=== PATIENT | male | born 1945 | race Two or more races ===

== ENCOUNTER 2022-08-17 01:57 | Emergency (ER) | payer MEDICARE, MEDICAID ==
[~2022-08-17] VITALS: Ht 190.5 cm; Wt 55.5 kg
[2022-08-17 02:17] VITALS: BP 132/69
[2022-08-17] MEDS ORDERED: CARV3 PO (02:27)
[2022-08-17] MEDS ORDERED: OMEP20 PO (02:27)
[2022-08-17] MEDS ORDERED: AMLO-257 PO (02:27)
[2022-08-17] MEDS ORDERED: ATOR40TA28 PO (02:27)
[2022-08-17] MEDS ORDERED: HYDR25TA2 PO (02:27)
[2022-08-17] MEDS ORDERED: VALS160T2 PO (02:27)
[2022-08-17] MEDS ORDERED: ASPI-1444 PO (02:27)
[2022-08-17] MEDS ORDERED: BACITRACIN 0.9 GM PACKET OINTMENT TP ONE (07:00)
== END 2022-08-17 07:04 | disposition home or self-care (01) ==
LOC: EMS 02:03
DX: R58 Hemorrhage, not elsewhere classified (principal); I86.1 Scrotal varices; I25.10 Atherosclerotic heart disease of native coronary artery without angina pectoris; I10 Essential (primary) hypertension; Z88.8 Allergy status to other drugs, medicaments and biological substances; Z90.49 Acquired absence of other specified parts of digestive tract
CPT/HCPCS: 10060; 99282; Z7502; Z7610